=== PATIENT | male | born 1945 | race Caucasian/White ===

== ENCOUNTER 2020-12-15 09:36 | Inpatient (IN) | payer MEDICARE, OTHER ==
[2020-12-16] MEDS: FLU VACC QS2021-22(65YR UP)/PF 240 MCG/0.7 ML SYRINGE IM ONE (18:31)
[2020-12-16] MEDS ORDERED: Dextrose 5% in Water 1,000 ML IV PRN (20:00)
[2020-12-16] MEDS ORDERED: Dextrose 50% Abboject 50 ML SYRINGE IVP PRN (20:00)
[2020-12-16] MEDS ORDERED: Budesonide 0.5 MG/2 ML NEB NEB SCH ×2 (21:00→22:30)
[2020-12-16] MEDS: Ezetimibe 10 MG TAB PO SCH (22:27)
[2020-12-16] MEDS: Doxycycline 100 MG CAP PO SCH (22:28)
[2020-12-16] MEDS: Apixaban 5 MG TAB PO SCH (22:28)
[2020-12-16] MEDS: Magnesium Oxide 400 MG TAB PO SCH (22:28)
[2020-12-16] MEDS: Atorvastatin Calcium 20 MG TAB PO SCH (22:28)
[2020-12-16] MEDS: Amlodipine 5 MG TAB PO SCH (22:29)
[2020-12-16] MEDS ORDERED: Budesonide 0.5 MG/2 ML NEB ONE (22:31)
[2020-12-17 06:43] LABS: ALT (SGPT) 13 U/L (8-55); AST (SGOT) 15 U/L (5-34); Albumin 2.7 g/dL (3.4-4.8); Alkaline Phosphatase 46 U/L (40-110); BUN (Urea Nitrogen) 21 mg/dL (8.4-25.7); Bilirubin, Total 0.8 mg/dL (0.2-1.2); Calc. Creatinine Clearance 75 mL/min (70-130); Calcium 8.3 mg/dL (7.8-10.44); Globulin 2.1 g/dL (2.4-3.5); Glucose 105 mg/dL (83-110); Protein, Total 4.8 g/dL (5.8-8.1)
[2020-12-17 06:47] LABS: Chloride 93 mmol/L (98-107); Potassium 5.2 mmol/L (3.5-5.1); Sodium 135 mmol/L (136-145)
[2020-12-17 06:56] LABS: Carbon Dioxide 35 mmol/L (23-31)
[2020-12-17 07:01] LABS: Anion Gap 12 mmol/L (10-20)
[2020-12-17 07:12] LABS: Band 5 % (5-11); Lymphocytes 5 % (21-51); MDiff Complete? YES; Mean Corpuscular HGB CONC 31.7 g/dL (32.0-36.0); Mean Corpuscular Hemoglobin 30.6 pg (27.0-31.0); Mean Corpuscular Volume 96.5 fL (78.0-98.0); Mean Platelet Volume 9.3 fL (7.4-10.4); Metamyelocyte 4 % (0-0); Monocytes 4 % (0-10); Myelocyte 2 % (0-0); Neutrophil 80 % (42-75); Platelet Count 269 thou/uL (130-400); Platelet Morphology Comment Appears Adequate; RBC Morphology Normal; Red Blood Cell (RBC) Count 4.57 mill/uL (4.70-6.10); White Blood Cell (WBC) Count 22.6 thou/uL (4.8-10.8)
[2020-12-17] MEDS ORDERED: HumaLOG 300 UNITS/3 ML VIAL SC SCH (08:00)
[2020-12-17] MEDS ORDERED: predniSONE 10 MG TAB PO SCH ×2 (08:00→09:00)
[2020-12-17] MEDS: glipiZIDE 5 MG TAB PO SCH ×2 (08:52→17:05)
[2020-12-17] MEDS: Amlodipine 5 MG TAB PO SCH ×2 (08:53→20:45)
[2020-12-17] MEDS: Apixaban 5 MG TAB PO SCH ×2 (08:55→20:45)
[2020-12-17] MEDS: Budesonide 0.5 MG/2 ML NEB NEB SCH ×2 (08:55→20:47)
[2020-12-17] MEDS: Doxycycline 100 MG CAP PO SCH ×2 (08:56→20:45)
[2020-12-17] MEDS: Clopidogrel Bisulfate 75 MG TAB PO SCH (08:56)
[2020-12-17] MEDS: Sotalol HCl 80 MG TAB PO SCH ×2 (08:57→20:46)
[2020-12-17] MEDS: Magnesium Oxide 400 MG TAB PO SCH ×2 (08:58→20:45)
[2020-12-17] MEDS: predniSONE 20 MG TAB PO SCH (10:14)
[2020-12-17 17:53] LABS: SARS-CoV-2 PCR by NAA Not Detected (NotDetected)
[2020-12-17] MEDS: HumaLOG 300 UNITS/3 ML VIAL SC PRN ×2 (18:03→20:59)
[2020-12-17] MEDS: Atorvastatin Calcium 20 MG TAB PO SCH (20:45)
[2020-12-17] MEDS: Ezetimibe 10 MG TAB PO SCH (20:45)
[2020-12-18 06:48] LABS: Anion Gap 8 mmol/L (10-20); BUN (Urea Nitrogen) 20 mg/dL (8.4-25.7); Calc. Creatinine Clearance 87 mL/min (70-130); Calcium 8.2 mg/dL (7.8-10.44); Carbon Dioxide 37 mmol/L (23-31); Chloride 94 mmol/L (98-107); Glucose 113 mg/dL (83-110); Potassium 5.2 mmol/L (3.5-5.1); Sodium 134 mmol/L (136-145)
[2020-12-18 06:57] LABS: Hemoglobin 12.8 g/dL (14.0-18.0); Mean Corpuscular HGB CONC 32.1 g/dL (32.0-36.0); Mean Corpuscular Hemoglobin 30.8 pg (27.0-31.0); Mean Corpuscular Volume 95.7 fL (78.0-98.0); Mean Platelet Volume 9.5 fL (7.4-10.4); Platelet Count 231 thou/uL (130-400); RBC Distribution Width 12.7 % (11.5-14.5); Red Blood Cell (RBC) Count 4.17 mill/uL (4.70-6.10); White Blood Cell (WBC) Count 15.6 thou/uL (4.8-10.8)
[2020-12-18 06:59] LABS: Lymphocytes 24 % (21-51); MDiff Complete? YES; Monocytes 3 % (0-10); Neutrophil 73 % (42-75); Platelet Morphology Comment Appears Adequate
[2020-12-18] MEDS: glipiZIDE 5 MG TAB PO SCH ×2 (08:10→17:12)
[2020-12-18] MEDS: Amlodipine 5 MG TAB PO SCH ×2 (08:11→21:33)
[2020-12-18] MEDS: Apixaban 5 MG TAB PO SCH ×2 (08:11→21:32)
[2020-12-18] MEDS: predniSONE 20 MG TAB PO SCH (08:11)
[2020-12-18] MEDS: Sotalol HCl 80 MG TAB PO SCH ×2 (08:12→21:33)
[2020-12-18] MEDS: Doxycycline 100 MG CAP PO SCH ×2 (08:12→21:32)
[2020-12-18] MEDS: Clopidogrel Bisulfate 75 MG TAB PO SCH (08:12)
[2020-12-18] MEDS: Magnesium Oxide 400 MG TAB PO SCH ×2 (08:13→21:32)
[2020-12-18] MEDS: Budesonide 0.5 MG/2 ML NEB NEB SCH ×2 (08:15→21:34)
[2020-12-18] MEDS: HumaLOG 300 UNITS/3 ML VIAL SC PRN (18:12)
[2020-12-18] MEDS: Atorvastatin Calcium 20 MG TAB PO SCH (21:32)
[2020-12-18] MEDS: Ezetimibe 10 MG TAB PO SCH (21:32)
[2020-12-19] MEDS: glipiZIDE 5 MG TAB PO SCH ×2 (08:34→17:03)
[2020-12-19] MEDS: Amlodipine 5 MG TAB PO SCH ×2 (08:35→20:32)
[2020-12-19] MEDS: Clopidogrel Bisulfate 75 MG TAB PO SCH (08:35)
[2020-12-19] MEDS: Magnesium Oxide 400 MG TAB PO SCH ×2 (08:36→20:32)
[2020-12-19] MEDS: Sotalol HCl 80 MG TAB PO SCH ×2 (08:36→20:35)
[2020-12-19] MEDS: Doxycycline 100 MG CAP PO SCH ×2 (08:37→20:32)
[2020-12-19] MEDS: predniSONE 20 MG TAB PO SCH (08:37)
[2020-12-19] MEDS: Apixaban 5 MG TAB PO SCH ×2 (08:37→20:32)
[2020-12-19] MEDS: Budesonide 0.5 MG/2 ML NEB NEB SCH ×2 (08:38→20:36)
[2020-12-19] MEDS: HumaLOG 300 UNITS/3 ML VIAL SC PRN ×2 (17:04→20:38)
[2020-12-19] MEDS: Atorvastatin Calcium 20 MG TAB PO SCH (20:32)
[2020-12-19] MEDS: Ezetimibe 10 MG TAB PO SCH (20:40)
[2020-12-20 06:27] LABS: Hemoglobin 13.7 g/dL (14.0-18.0)
[2020-12-20 06:35] LABS: Calc. Creatinine Clearance 89 mL/min (70-130)
[2020-12-20] MEDS: predniSONE 20 MG TAB PO SCH (08:27)
[2020-12-20] MEDS: glipiZIDE 5 MG TAB PO SCH (08:28)
[2020-12-20] MEDS: Doxycycline 100 MG CAP PO SCH ×2 (08:28→20:46)
[2020-12-20] MEDS: Apixaban 5 MG TAB PO SCH ×2 (08:29→20:46)
[2020-12-20] MEDS: Amlodipine 5 MG TAB PO SCH (08:29)
[2020-12-20] MEDS: Magnesium Oxide 400 MG TAB PO SCH ×2 (08:29→20:47)
[2020-12-20] MEDS: Budesonide 0.5 MG/2 ML NEB NEB SCH ×2 (08:29→20:47)
[2020-12-20] MEDS: Clopidogrel Bisulfate 75 MG TAB PO SCH (08:29)
[2020-12-20] MEDS: Sotalol HCl 80 MG TAB PO SCH ×2 (08:30→20:46)
[2020-12-20] MEDS ORDERED: predniSONE 10 MG TAB PO SCH (09:00)
[2020-12-20] MEDS: HumaLOG 300 UNITS/3 ML VIAL SC PRN ×2 (16:16→20:47)
[2020-12-20] MEDS: Amlodipine 10 MG TAB PO SCH (20:46)
[2020-12-20] MEDS: Ezetimibe 10 MG TAB PO SCH (20:46)
[2020-12-20] MEDS: Atorvastatin Calcium 20 MG TAB PO SCH (20:46)
[2020-12-21 05:54] LABS: Anion Gap 9 mmol/L (10-20); BUN (Urea Nitrogen) 18 mg/dL (8.4-25.7); Calc. Creatinine Clearance 89 mL/min (70-130); Calcium 8.1 mg/dL (7.8-10.44); Carbon Dioxide 36 mmol/L (23-31); Chloride 93 mmol/L (98-107); Glucose 108 mg/dL (83-110); Potassium 4.6 mmol/L (3.5-5.1); Sodium 133 mmol/L (136-145)
[2020-12-21 06:01] LABS: Hemoglobin 12.9 g/dL (14.0-18.0); Mean Corpuscular HGB CONC 32.2 g/dL (32.0-36.0); Mean Corpuscular Hemoglobin 30.6 pg (27.0-31.0); Mean Corpuscular Volume 94.9 fL (78.0-98.0); Mean Platelet Volume 7.8 fL (7.4-10.4); Platelet Count 221 thou/uL (130-400); RBC Distribution Width 12.7 % (11.5-14.5); Red Blood Cell (RBC) Count 4.22 mill/uL (4.70-6.10)
[2020-12-21 06:02] LABS: Band 2 % (5-11); Lymphocytes 6 % (21-51); MDiff Complete? YES; Monocytes 12 % (0-10); Neutrophil 76 % (42-75); Platelet Morphology Comment Appears Adequate; RBC Morphology Normal; Reactive Lymphocytes 4 % (0-10)
[2020-12-21] MEDS: Amlodipine 10 MG TAB PO SCH ×2 (08:53→20:40)
[2020-12-21] MEDS: Budesonide 0.5 MG/2 ML NEB NEB SCH ×2 (08:54→20:41)
[2020-12-21] MEDS: Apixaban 5 MG TAB PO SCH ×2 (08:54→20:39)
[2020-12-21] MEDS: Doxycycline 100 MG CAP PO SCH ×2 (08:56→20:39)
[2020-12-21] MEDS: Clopidogrel Bisulfate 75 MG TAB PO SCH (08:56)
[2020-12-21] MEDS: Magnesium Oxide 400 MG TAB PO SCH ×2 (08:56→20:39)
[2020-12-21] MEDS: Sotalol HCl 80 MG TAB PO SCH ×2 (08:57→20:39)
[2020-12-21] MEDS: predniSONE 20 MG TAB PO SCH (08:57)
[2020-12-21] MEDS: HumaLOG 300 UNITS/3 ML VIAL SC PRN ×2 (17:34→20:53)
[2020-12-21] MEDS: Ezetimibe 10 MG TAB PO SCH (20:39)
[2020-12-21] MEDS: Atorvastatin Calcium 20 MG TAB PO SCH (20:39)
[2020-12-22] MEDS: Amlodipine 10 MG TAB PO SCH ×2 (08:44→23:38)
[2020-12-22] MEDS: Apixaban 5 MG TAB PO SCH ×2 (08:45→20:46)
[2020-12-22] MEDS: Budesonide 0.5 MG/2 ML NEB NEB SCH ×2 (08:45→20:49)
[2020-12-22] MEDS: predniSONE 20 MG TAB PO SCH (08:46)
[2020-12-22] MEDS: Clopidogrel Bisulfate 75 MG TAB PO SCH (08:46)
[2020-12-22] MEDS: Magnesium Oxide 400 MG TAB PO SCH ×2 (08:46→20:48)
[2020-12-22] MEDS: Doxycycline 100 MG CAP PO SCH ×2 (08:46→20:48)
[2020-12-22] MEDS: HumaLOG 300 UNITS/3 ML VIAL SC PRN ×3 (08:47→20:50)
[2020-12-22] MEDS: Sotalol HCl 80 MG TAB PO SCH ×2 (08:47→20:48)
[2020-12-22] MEDS: Nystatin 500,000 UNITS/5 ML UDCUP SSW SCH ×3 (14:51→20:48)
[2020-12-22] MEDS: Atorvastatin Calcium 20 MG TAB PO SCH (20:48)
[2020-12-22] MEDS: Ezetimibe 10 MG TAB PO SCH (20:48)
[2020-12-23 06:48] LABS: Hemoglobin 13.1 g/dL (14.0-18.0)
[2020-12-23 06:54] LABS: Calc. Creatinine Clearance 86 mL/min (70-130)
[2020-12-23] MEDS: Budesonide 0.5 MG/2 ML NEB NEB SCH ×2 (08:50→21:05)
[2020-12-23] MEDS: Doxycycline 100 MG CAP PO SCH ×2 (08:55→21:04)
[2020-12-23] MEDS: Magnesium Oxide 400 MG TAB PO SCH ×2 (08:55→21:04)
[2020-12-23] MEDS: Amlodipine 10 MG TAB PO SCH ×2 (08:55→21:04)
[2020-12-23] MEDS: Sotalol HCl 80 MG TAB PO SCH ×2 (08:56→21:04)
[2020-12-23] MEDS: Nystatin 500,000 UNITS/5 ML UDCUP SSW SCH ×4 (08:57→21:05)
[2020-12-23] MEDS: predniSONE 20 MG TAB PO SCH (08:57)
[2020-12-23] MEDS: Apixaban 5 MG TAB PO SCH ×2 (08:57→21:04)
[2020-12-23] MEDS: Clopidogrel Bisulfate 75 MG TAB PO SCH (08:57)
[2020-12-23] MEDS ORDERED: predniSONE 10 MG TAB PO SCH (09:00)
[2020-12-23] MEDS: HumaLOG 300 UNITS/3 ML VIAL SC PRN ×2 (17:25→21:08)
[2020-12-23] MEDS: Atorvastatin Calcium 20 MG TAB PO SCH (21:04)
[2020-12-23] MEDS: Ezetimibe 10 MG TAB PO SCH (21:05)
[2020-12-24] MEDS: HumaLOG 300 UNITS/3 ML VIAL SC PRN ×4 (05:42→20:27)
[2020-12-24] MEDS: Budesonide 0.5 MG/2 ML NEB NEB SCH ×2 (08:29→20:26)
[2020-12-24] MEDS: Sotalol HCl 80 MG TAB PO SCH ×2 (08:31→20:26)
[2020-12-24] MEDS: Apixaban 5 MG TAB PO SCH ×2 (08:31→20:25)
[2020-12-24] MEDS: Magnesium Oxide 400 MG TAB PO SCH ×2 (08:31→20:26)
[2020-12-24] MEDS: Clopidogrel Bisulfate 75 MG TAB PO SCH (08:31)
[2020-12-24] MEDS: Doxycycline 100 MG CAP PO SCH ×2 (08:31→20:26)
[2020-12-24] MEDS: Amlodipine 10 MG TAB PO SCH ×2 (08:32→20:21)
[2020-12-24] MEDS: predniSONE 20 MG TAB PO SCH (08:32)
[2020-12-24] MEDS: Nystatin 500,000 UNITS/5 ML UDCUP SSW SCH ×4 (08:33→20:26)
[2020-12-24] MEDS ORDERED: Polyethylene Glycol 3350 17 GM Packet PO SCH (09:45)
[2020-12-24] MEDS: Docusate 100 MG CAP PO PRN (17:20)
[2020-12-24] MEDS: Ezetimibe 10 MG TAB PO SCH (20:26)
[2020-12-24] MEDS: Atorvastatin Calcium 20 MG TAB PO SCH (20:26)
[2020-12-25] MEDS: Apixaban 5 MG TAB PO SCH ×2 (08:39→20:23)
[2020-12-25] MEDS: Amlodipine 10 MG TAB PO SCH ×2 (08:39→20:23)
[2020-12-25] MEDS: Budesonide 0.5 MG/2 ML NEB NEB SCH ×2 (08:39→20:22)
[2020-12-25] MEDS: Magnesium Oxide 400 MG TAB PO SCH ×2 (08:40→20:23)
[2020-12-25] MEDS: Clopidogrel Bisulfate 75 MG TAB PO SCH (08:40)
[2020-12-25] MEDS: Nystatin 500,000 UNITS/5 ML UDCUP SSW SCH ×2 (08:41→12:15)
[2020-12-25] MEDS: predniSONE 20 MG TAB PO SCH (08:41)
[2020-12-25] MEDS: Polyethylene Glycol 3350 17 GM Packet PO SCH (08:41)
[2020-12-25] MEDS: Sotalol HCl 80 MG TAB PO SCH ×2 (08:42→20:22)
[2020-12-25] MEDS: Doxycycline 100 MG CAP PO SCH ×2 (08:42→20:23)
[2020-12-25] MEDS: Docusate 100 MG CAP PO PRN (08:44)
[2020-12-25] MEDS: HumaLOG 300 UNITS/3 ML VIAL SC PRN ×3 (12:15→20:24)
[2020-12-25] MEDS ORDERED: Ondansetron ODT 4 MG TAB PO PRN (13:22)
[2020-12-25] MEDS ORDERED: diphenhydrAMINE 25 MG CAP PO PRN ×2 (13:22→13:40)
[2020-12-25] MEDS ORDERED: Nystatin 500,000 UNITS/5 ML UDCUP SSW PRN ×2 (14:22→14:30)
[2020-12-25 14:38] LABS: SARS-CoV-2 PCR by NAA Not Detected (NotDetected)
[2020-12-25] MEDS: Ezetimibe 10 MG TAB PO SCH (20:23)
[2020-12-25] MEDS: Atorvastatin Calcium 20 MG TAB PO SCH (20:23)
[2020-12-26 06:40] LABS: Calc. Creatinine Clearance 88 mL/min (70-130)
[2020-12-26 06:49] LABS: Hemoglobin 13.1 g/dL (14.0-18.0)
[2020-12-26] MEDS: Amlodipine 10 MG TAB PO SCH ×2 (08:50→20:43)
[2020-12-26] MEDS: Apixaban 5 MG TAB PO SCH ×2 (08:52→20:44)
[2020-12-26] MEDS: Budesonide 0.5 MG/2 ML NEB NEB SCH ×2 (08:52→20:45)
[2020-12-26] MEDS: Polyethylene Glycol 3350 17 GM Packet PO SCH (08:53)
[2020-12-26] MEDS: Clopidogrel Bisulfate 75 MG TAB PO SCH (08:53)
[2020-12-26] MEDS: Magnesium Oxide 400 MG TAB PO SCH ×2 (08:53→20:44)
[2020-12-26] MEDS: Doxycycline 100 MG CAP PO SCH ×2 (08:53→20:44)
[2020-12-26] MEDS: Sotalol HCl 80 MG TAB PO SCH ×2 (08:54→20:44)
[2020-12-26] MEDS: predniSONE 20 MG TAB PO SCH (08:54)
[2020-12-26] MEDS: Docusate 100 MG CAP PO PRN (08:56)
[2020-12-26] MEDS ORDERED: predniSONE 10 MG TAB PO SCH (09:00)
[2020-12-26] MEDS: HumaLOG 300 UNITS/3 ML VIAL SC PRN ×3 (11:27→20:45)
[2020-12-26] MEDS: FLU VACC QS2021-22(65YR UP)/PF 240 MCG/0.7 ML SYRINGE IM ONE (13:55)
[2020-12-26] MEDS: Atorvastatin Calcium 20 MG TAB PO SCH (20:44)
[2020-12-26] MEDS: Ezetimibe 10 MG TAB PO SCH (20:44)
[2020-12-27] MEDS: Clopidogrel Bisulfate 75 MG TAB PO SCH (08:58)
[2020-12-27] MEDS: Budesonide 0.5 MG/2 ML NEB NEB SCH ×2 (08:58→20:12)
[2020-12-27] MEDS: Polyethylene Glycol 3350 17 GM Packet PO SCH ×3 (08:58→14:50)
[2020-12-27] MEDS: predniSONE 20 MG TAB PO SCH (08:59)
[2020-12-27] MEDS: Sotalol HCl 80 MG TAB PO SCH ×2 (09:00→20:13)
[2020-12-27] MEDS: Apixaban 5 MG TAB PO SCH ×2 (09:01→20:13)
[2020-12-27] MEDS: Amlodipine 10 MG TAB PO SCH ×2 (09:01→20:12)
[2020-12-27] MEDS: Magnesium Oxide 400 MG TAB PO SCH ×2 (09:02→20:14)
[2020-12-27] MEDS: Docusate 100 MG CAP PO PRN (09:03)
[2020-12-27] MEDS: HumaLOG 300 UNITS/3 ML VIAL SC PRN ×3 (11:46→20:11)
[2020-12-27] MEDS: Atorvastatin Calcium 20 MG TAB PO SCH (20:12)
[2020-12-27] MEDS: busPIRone HCl 5 MG TAB PO SCH (20:13)
[2020-12-27] MEDS: Ezetimibe 10 MG TAB PO SCH (20:13)
[2020-12-28] MEDS: predniSONE 20 MG TAB PO SCH (08:38)
[2020-12-28] MEDS: Budesonide 0.5 MG/2 ML NEB NEB SCH ×2 (08:38→20:17)
[2020-12-28] MEDS: Polyethylene Glycol 3350 17 GM Packet PO SCH (08:38)
[2020-12-28] MEDS: Clopidogrel Bisulfate 75 MG TAB PO SCH (08:39)
[2020-12-28] MEDS: Magnesium Oxide 400 MG TAB PO SCH ×2 (08:39→20:20)
[2020-12-28] MEDS: Amlodipine 10 MG TAB PO SCH ×2 (08:40→20:19)
[2020-12-28] MEDS: Sotalol HCl 80 MG TAB PO SCH ×2 (08:41→20:18)
[2020-12-28] MEDS: Apixaban 5 MG TAB PO SCH ×2 (08:41→20:19)
[2020-12-28] MEDS: busPIRone HCl 5 MG TAB PO SCH ×2 (08:41→20:18)
[2020-12-28] MEDS: HumaLOG 300 UNITS/3 ML VIAL SC PRN ×3 (11:36→20:17)
[2020-12-28] MEDS: Milk Of Magnesia 30 ML UDCUP PO PRN (17:21)
[2020-12-28] MEDS: Ezetimibe 10 MG TAB PO SCH (20:20)
[2020-12-28] MEDS: Atorvastatin Calcium 20 MG TAB PO SCH (20:20)
[2020-12-28 23:47] VITALS: BMI 24.7
[2020-12-29 05:17] LABS: Hemoglobin 12.3 g/dL (14.0-18.0)
[2020-12-29] MEDS: Amlodipine 10 MG TAB PO SCH ×2 (08:33→20:53)
[2020-12-29] MEDS: Budesonide 0.5 MG/2 ML NEB NEB SCH ×2 (08:35→20:54)
[2020-12-29] MEDS: Apixaban 5 MG TAB PO SCH ×2 (08:35→20:52)
[2020-12-29] MEDS: busPIRone HCl 5 MG TAB PO SCH ×2 (08:37→20:53)
[2020-12-29] MEDS: Clopidogrel Bisulfate 75 MG TAB PO SCH (08:38)
[2020-12-29] MEDS: Sotalol HCl 80 MG TAB PO SCH ×2 (08:39→20:52)
[2020-12-29] MEDS: Magnesium Oxide 400 MG TAB PO SCH ×2 (08:39→20:52)
[2020-12-29] MEDS: Polyethylene Glycol 3350 17 GM Packet PO SCH (08:40)
[2020-12-29] MEDS: HumaLOG 300 UNITS/3 ML VIAL SC PRN ×2 (12:28→16:44)
[2020-12-29] MEDS: Ezetimibe 10 MG TAB PO SCH (20:53)
[2020-12-29] MEDS: Atorvastatin Calcium 20 MG TAB PO SCH (20:54)
[2020-12-29] MEDS: Milk Of Magnesia 30 ML UDCUP PO PRN (21:01)
[2020-12-30] MEDS: busPIRone HCl 5 MG TAB PO SCH ×2 (08:31→20:14)
[2020-12-30] MEDS: Amlodipine 10 MG TAB PO SCH ×2 (08:31→20:13)
[2020-12-30] MEDS: Apixaban 5 MG TAB PO SCH ×2 (08:31→20:15)
[2020-12-30] MEDS: Budesonide 0.5 MG/2 ML NEB NEB SCH ×2 (08:31→20:12)
[2020-12-30] MEDS: Magnesium Oxide 400 MG TAB PO SCH ×2 (08:32→20:15)
[2020-12-30] MEDS: Sotalol HCl 80 MG TAB PO SCH ×2 (08:32→20:14)
[2020-12-30] MEDS: Polyethylene Glycol 3350 17 GM Packet PO SCH (08:32)
[2020-12-30] MEDS: Clopidogrel Bisulfate 75 MG TAB PO SCH (08:34)
[2020-12-30] MEDS: HumaLOG 300 UNITS/3 ML VIAL SC PRN (11:35)
[2020-12-30] MEDS: Ezetimibe 10 MG TAB PO SCH (20:15)
[2020-12-30] MEDS: Atorvastatin Calcium 20 MG TAB PO SCH (20:15)
[2020-12-31] MEDS: Amlodipine 10 MG TAB PO SCH ×2 (08:18→20:10)
[2020-12-31] MEDS: Apixaban 5 MG TAB PO SCH ×2 (08:19→20:09)
[2020-12-31] MEDS: Budesonide 0.5 MG/2 ML NEB NEB SCH ×2 (08:19→20:09)
[2020-12-31] MEDS: busPIRone HCl 5 MG TAB PO SCH ×2 (08:20→20:10)
[2020-12-31] MEDS: Clopidogrel Bisulfate 75 MG TAB PO SCH (08:20)
[2020-12-31] MEDS: Sotalol HCl 80 MG TAB PO SCH ×2 (08:21→20:10)
[2020-12-31] MEDS: Polyethylene Glycol 3350 17 GM Packet PO SCH (08:21)
[2020-12-31] MEDS: Magnesium Oxide 400 MG TAB PO SCH ×2 (08:21→20:09)
[2020-12-31] MEDS: HumaLOG 300 UNITS/3 ML VIAL SC PRN ×3 (11:32→20:09)
[2020-12-31] MEDS: Ezetimibe 10 MG TAB PO SCH (20:09)
[2020-12-31] MEDS: Atorvastatin Calcium 20 MG TAB PO SCH (20:09)
[2021-01-01 06:28] LABS: Hemoglobin 12.4 g/dL (14.0-18.0)
[2021-01-01 06:32] LABS: Calc. Creatinine Clearance 88 mL/min (70-130)
[2021-01-01] MEDS: Polyethylene Glycol 3350 17 GM Packet PO SCH (08:36)
[2021-01-01] MEDS: Clopidogrel Bisulfate 75 MG TAB PO SCH (08:37)
[2021-01-01] MEDS: Amlodipine 10 MG TAB PO SCH ×2 (08:37→20:27)
[2021-01-01] MEDS: Sotalol HCl 80 MG TAB PO SCH ×2 (08:38→20:26)
[2021-01-01] MEDS: Magnesium Oxide 400 MG TAB PO SCH ×2 (08:39→20:26)
[2021-01-01] MEDS: Budesonide 0.5 MG/2 ML NEB NEB SCH ×2 (08:39→20:29)
[2021-01-01] MEDS: busPIRone HCl 5 MG TAB PO SCH ×2 (08:39→20:27)
[2021-01-01] MEDS: Apixaban 5 MG TAB PO SCH ×2 (08:39→20:27)
[2021-01-01] MEDS: HumaLOG 300 UNITS/3 ML VIAL SC PRN (11:28)
[2021-01-01] MEDS: Ezetimibe 10 MG TAB PO SCH (20:27)
[2021-01-01] MEDS: Atorvastatin Calcium 20 MG TAB PO SCH (20:27)
[2021-01-02] MEDS: HumaLOG 300 UNITS/3 ML VIAL SC PRN ×3 (06:26→20:52)
[2021-01-02] MEDS: Sotalol HCl 80 MG TAB PO SCH ×2 (09:28→20:58)
[2021-01-02] MEDS: Amlodipine 10 MG TAB PO SCH ×2 (09:28→20:55)
[2021-01-02] MEDS: busPIRone HCl 5 MG TAB PO SCH ×2 (09:28→20:58)
[2021-01-02] MEDS: Magnesium Oxide 400 MG TAB PO SCH (09:28)
[2021-01-02] MEDS: Clopidogrel Bisulfate 75 MG TAB PO SCH (09:29)
[2021-01-02] MEDS: Budesonide 0.5 MG/2 ML NEB NEB SCH ×2 (09:29→20:54)
[2021-01-02] MEDS: Apixaban 5 MG TAB PO SCH ×2 (09:29→20:58)
[2021-01-02] MEDS: Polyethylene Glycol 3350 17 GM Packet PO SCH (10:02)
[2021-01-02 15:54] LABS: SARS-CoV-2 PCR by NAA Not Detected (NotDetected)
[2021-01-02] MEDS: Benzonatate 100 MG CAP PO PRN (18:34)
[2021-01-02] MEDS: Ezetimibe 10 MG TAB PO SCH (20:58)
[2021-01-02] MEDS: Atorvastatin Calcium 20 MG TAB PO SCH (20:59)
[2021-01-03] MEDS: Benzonatate 100 MG CAP PO PRN ×2 (07:30→13:03)
[2021-01-03] MEDS: Budesonide 0.5 MG/2 ML NEB NEB SCH ×2 (08:03→20:15)
[2021-01-03] MEDS: Clopidogrel Bisulfate 75 MG TAB PO SCH (08:04)
[2021-01-03] MEDS: Apixaban 5 MG TAB PO SCH ×2 (08:05→20:33)
[2021-01-03] MEDS: Sotalol HCl 80 MG TAB PO SCH ×2 (08:05→20:34)
[2021-01-03] MEDS: busPIRone HCl 5 MG TAB PO SCH ×2 (08:05→20:33)
[2021-01-03] MEDS: Amlodipine 10 MG TAB PO SCH ×2 (08:05→20:34)
[2021-01-03] MEDS: Magnesium Oxide 400 MG TAB PO SCH ×2 (08:05→20:34)
[2021-01-03] MEDS: Polyethylene Glycol 3350 17 GM Packet PO SCH (08:08)
[2021-01-03] MEDS: HumaLOG 300 UNITS/3 ML VIAL SC PRN ×2 (11:37→17:07)
[2021-01-03] MEDS: Ezetimibe 10 MG TAB PO SCH (20:34)
[2021-01-03] MEDS: Atorvastatin Calcium 20 MG TAB PO SCH (20:34)
[2021-01-04 06:43] LABS: Hemoglobin 11.4 g/dL (14.0-18.0)
[2021-01-04 06:57] LABS: Calc. Creatinine Clearance 88 mL/min (70-130)
[2021-01-04] MEDS: Amlodipine 10 MG TAB PO SCH ×2 (08:22→20:36)
[2021-01-04] MEDS: Magnesium Oxide 400 MG TAB PO SCH ×2 (08:23→20:36)
[2021-01-04] MEDS: busPIRone HCl 5 MG TAB PO SCH ×2 (08:23→20:35)
[2021-01-04] MEDS: Polyethylene Glycol 3350 17 GM Packet PO SCH (08:23)
[2021-01-04] MEDS: Apixaban 5 MG TAB PO SCH ×2 (08:23→20:36)
[2021-01-04] MEDS: Clopidogrel Bisulfate 75 MG TAB PO SCH (08:23)
[2021-01-04] MEDS: Sotalol HCl 80 MG TAB PO SCH ×2 (08:23→20:35)
[2021-01-04] MEDS: Budesonide 0.5 MG/2 ML NEB NEB SCH ×2 (11:12→20:33)
[2021-01-04] MEDS: HumaLOG 300 UNITS/3 ML VIAL SC PRN (12:08)
[2021-01-04] MEDS: Atorvastatin Calcium 20 MG TAB PO SCH (20:35)
[2021-01-04] MEDS: Ezetimibe 10 MG TAB PO SCH (20:35)
[2021-01-05] MEDS: busPIRone HCl 5 MG TAB PO SCH ×2 (08:01→20:21)
[2021-01-05] MEDS: Sotalol HCl 80 MG TAB PO SCH ×2 (08:01→20:20)
[2021-01-05] MEDS: Budesonide 0.5 MG/2 ML NEB NEB SCH ×2 (08:01→18:38)
[2021-01-05] MEDS: Clopidogrel Bisulfate 75 MG TAB PO SCH (08:01)
[2021-01-05] MEDS: Amlodipine 10 MG TAB PO SCH ×2 (08:01→20:22)
[2021-01-05] MEDS: Polyethylene Glycol 3350 17 GM Packet PO SCH (08:02)
[2021-01-05] MEDS: Magnesium Oxide 400 MG TAB PO SCH ×2 (08:02→20:22)
[2021-01-05] MEDS: Apixaban 5 MG TAB PO SCH ×2 (08:02→20:22)
[2021-01-05] MEDS: HumaLOG 300 UNITS/3 ML VIAL SC PRN (12:13)
[2021-01-05] MEDS: Atorvastatin Calcium 20 MG TAB PO SCH (20:20)
[2021-01-05] MEDS: Ezetimibe 10 MG TAB PO SCH (20:20)
[2021-01-05] MEDS ORDERED: predniSONE 10 MG TAB PO SCH (21:00)
[2021-01-06 07:48] VITALS: TEMP 97.5
[2021-01-06] MEDS: Amlodipine 10 MG TAB PO SCH ×2 (07:51→20:04)
[2021-01-06] MEDS: Apixaban 5 MG TAB PO SCH ×2 (07:52→20:03)
[2021-01-06] MEDS: busPIRone HCl 5 MG TAB PO SCH ×2 (07:52→20:03)
[2021-01-06] MEDS: Sotalol HCl 80 MG TAB PO SCH ×2 (07:52→20:03)
[2021-01-06] MEDS: Magnesium Oxide 400 MG TAB PO SCH ×2 (07:53→20:04)
[2021-01-06] MEDS: Budesonide 0.5 MG/2 ML NEB NEB SCH (07:53)
[2021-01-06] MEDS: Clopidogrel Bisulfate 75 MG TAB PO SCH (07:53)
[2021-01-06] MEDS ORDERED: predniSONE 10 MG TAB PO SCH (08:00)
[2021-01-06] MEDS: Polyethylene Glycol 3350 17 GM Packet PO SCH (08:54)
[2021-01-06] MEDS: HumaLOG 300 UNITS/3 ML VIAL SC PRN ×3 (11:49→20:14)
[2021-01-06] MEDS ORDERED: Mometasone/Formoterol 60 PUFF AER INH SCH ×2 (13:00→21:00)
[2021-01-06 19:47] VITALS: BP 117/76
[2021-01-06] MEDS: Ezetimibe 10 MG TAB PO SCH (20:04)
[2021-01-06] MEDS: Atorvastatin Calcium 20 MG TAB PO SCH (20:04)
[2021-01-06] MEDS ORDERED: Budesonide 0.5 MG/2 ML NEB NEB SCH (21:00)
[2021-01-07] MEDS ORDERED: predniSONE 20 MG TAB PO SCH (08:00)
== END 2021-01-06 20:40 | disposition critical access hospital (66) | DRG 189 ==
LOC: NAV ACUTE 12-16 16:30
PROVIDERS: ADMIT Family Medicine; ATTEND Family Medicine
DX: J96.11 Chronic respiratory failure with hypoxia (principal); J18.9 Pneumonia, unspecified organism; E87.1 Hypo-osmolality and hyponatremia; J44.0 Chronic obstructive pulmonary disease with (acute) lower respiratory infection; I48.91 Unspecified atrial fibrillation; I25.10 Atherosclerotic heart disease of native coronary artery without angina pectoris; E78.5 Hyperlipidemia, unspecified; K74.60 Unspecified cirrhosis of liver; E87.5 Hyperkalemia; J44.9 Chronic obstructive pulmonary disease, unspecified; E87.6 Hypokalemia; D64.9 Anemia, unspecified; B37.9 Candidiasis, unspecified; F41.9 Anxiety disorder, unspecified; N18.2 Chronic kidney disease, stage 2 (mild); E11.22 Type 2 diabetes mellitus with diabetic chronic kidney disease; Z20.822 Contact with and (suspected) exposure to COVID-19; F41.0 Panic disorder [episodic paroxysmal anxiety]; I12.9 Hypertensive chronic kidney disease with stage 1 through stage 4 chronic kidney disease, or unspecified chronic kidney disease; Z95.5 Presence of coronary angioplasty implant and graft; Z88.0 Allergy status to penicillin; Z87.891 Personal history of nicotine dependence
CPT/HCPCS: 36415; 36416; 71045; 71046; 80048; 80053; 82565; 85014; 85018; 85025; 90471; 90662; 94640; G0008; J1815; J1956; J7512; J7620; J7626; U0003; U0005